=== PATIENT | female | born 1965 | race Two or more races ===

== ENCOUNTER 2018-06-01 07:48 | Outpatient (CLI) | payer OTHER | END 2018-06-01 08:45 | disposition home or self-care (01) | LOC: NUCLEAR 07:48 | DX: R07.89 Other chest pain (principal); E78.4 Other hyperlipidemia; R94.31 Abnormal electrocardiogram [ECG] [EKG] | CPT/HCPCS: 78452; 93017; A9500 ==

== ENCOUNTER 2021-07-14 13:10 | Outpatient (CLI) | payer OTHER | END 2021-07-14 13:30 | disposition home or self-care (01) | LOC: PPH VACUNA 13:10 | PROVIDERS: ATTEND Emergency Medicine Pediatric Emergency Medicine | DX: Z23 Encounter for immunization (principal) ==

== ENCOUNTER 2022-09-01 12:18 | Outpatient (CLI) | payer OTHER | END 2022-09-01 12:28 | disposition home or self-care (01) | LOC: PPH VACUNA 12:18 | PROVIDERS: ATTEND Emergency Medicine Pediatric Emergency Medicine | DX: Z23 Encounter for immunization (principal) ==

== ENCOUNTER 2024-10-31 11:16 | Outpatient (CLI) | payer OTHER | END 2024-10-31 11:20 | disposition home or self-care (01) | LOC: SONOGRAMA 11:16 | PROVIDERS: ATTEND Pathology Anatomic Pathology & Clinical Pathology | DX: D34 Benign neoplasm of thyroid gland (principal); E07.89 Other specified disorders of thyroid; E04.1 Nontoxic single thyroid nodule ==